=== PATIENT | female | born 2000 | race Caucasian/White ===

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

== ENCOUNTER 2022-01-13 20:02 | Emergency (ER) | payer BC, MEDICAID, SELFPAY ==
[2022-01-13 20:41] VITALS: BP 130/84; PULSE 90; RESP 16; TEMP 36.9; O2SAT 98; BMI 21.0
--- NOTE | 2022-01-13 20:50 | ED_ITS ---
HPI - URI/Sore Throat General: Chief Complaint: Upper Respiratory Infection Stated Complaint: Something Stuck in Throat Time Seen by Provider: 01/13/22 20:47 History of Present Illness: 21-year-old female comes in today with complaints of posterior pharyngeal discomfort with swallowing. Patient reports about 3 days ago she was eating some croutons and since then she has had discomfort in the posterior pharynx. Patient denies any consumption of fish or boned chicken. Patient appears nontoxic. Patient reports ability to swallow food and fluid without difficulty. Associated symptoms: Deny chest pain, fever(s), nausea or vomiting Review of Systems Const: Denies: fever(s) ENMT: Reports: throat pain Card: Denies: chest pain Resp: Denies: dyspnea GI: Denies: nausea or vomiting PFSH ED PFSH: Medical History Asthma does not currently have an inhaler-- usually has more attacks in the summer- is not managed Celiac disease told she had this dx'd by ER at [facility]-- she developed a rash and was seen for that. No biospy or blood test. No pertinent past medical history Neg hx: HTN, DM, thyroid, DVT/PE PCP: None Surgical History No pertinent past surgical history Family History Grandmother Diabetes Maternal Family/Other Breast cancer Maternal Great Grandmother--dx age 56 Denies family history of Colon cancer Ovarian cancer Heart disease Hypercholesteremia Hypertension Uterine cancer Thyroid disease Stroke Female Reproductive History: Date of last menstrual period: 01/02/22 Physical Exam Const: COMMON NORMALS: alert HENMT: COMMON NORMALS: TM's normal bilaterally NOSE: Normal nares present TYMPANIC MEMBRANE: TM's normal bilaterally MOUTH: Normal oral and palatal mucosa present THROAT: posterior oropharynx abnormal cobblestoning and erythema Neck/C-Spine: COMMON NORMALS: full ROM and no meningeal signs Resp: COMMON NORMALS: normal respiratory effort and clear to auscultation bilaterally AUSCULTATION: clear to auscultation bilaterally Cardio: COMMON NORMALS: regular rate and regular rhythm RATE: regular rate RHYTHM: regular rhythm Extremity: COMMON NORMALS: normal to inspection Neuro: SENSORIUM/ORIENTATION: Yes alert MENINGEAL SIGNS: Yes no meningeal signs Skin: COMMON NORMALS: turgor normal GENERAL SKIN EXAM: turgor normal Course Vital Signs: Vital signs: Vital Signs Temperature 98.4 F 01/13/22 20:41 Pulse Rate 90 01/13/22 20:41 Respiratory Rate 16 01/13/22 20:41 Blood Pressure 130/84 01/13/22 20:41 Pulse Oximetry 98 01/13/22 20:41 Oxygen Delivery Me thod 01/13/22 20:41 MDM - URI/Sore Throat Medical Decision Making Patient comes in today for complaints of sore throat and difficulty swallowing. Patient is concerned she may have a foreign body in her throat. On exam patient has cobblestoning and erythema in the posterior pharynx. Respirations are even lungs are clear to auscultation. Abdomen soft nontender. Differential diagnosis includes but not limited to viral pharyngitis, postnasal drip, foreign body. X-ray noted no foreign body. Patient was given 10 mg of dexamethasone for pharyngitis. Encourage fluids rest and follow-up with primary care. Patient reported understanding and agreed to plan. Lab Data Radiology Impressions Soft Tissue Neck X-Ray 01/13/22 20:55 IMPRESSION: No acute findings. Discharge Plan Discharge Patient Disposition: Home Clinical Impression: Pharyngitis Qualifiers: Pharyngitis/tonsillitis etiology: unspecified etiology Qualified Code(s): J02.9 - Acute pharyngitis, unspecified Condition: Stable Prescriptions: No Action albuterol sulfate [ProAir HFA] 90 mcg/actuation HFA aerosol inhaler 2 puff INHALATION Q6H PRN (Reason: shortness of breath or wheezing) Qty: 18 0RF Valium 5 mg Tablet 5 mg PO DAILY PRN (Reason: Anxiety) Discharge Orders: Discharge ED (Routine); Ordered 01/13/22 Ordered By: Ricardo Hatch Referrals: Alysha Jones DO [Primary Care Provider] - Discharge Diet: Usual diet Discharge Activity: Increase activity as tolerated Patient Instructions: Pharyngitis (ED) Activity Restrictions/Additional Instructions: Drink plenty of water. Use throat lozenges to help with discomfort. Follow-up with primary care for further instruction. Return to ER for new concerns. Coding Level of Care Code ED Yeast Culture Developer for Ann Fwd Exam Detailed
--- NOTE | 2022-01-13 20:55 | XRR_ITS ---
PROCEDURE INFORMATION: Exam: XR Soft Tissue Neck Exam date and time: 01/13/2022 8:59 PM Age: 21 years old Clinical indication: Throat pain; Additional info: Foreign body sensation throat TECHNIQUE: Imaging protocol: Radiologic exam of the soft tissues of the neck. COMPARISON: CR XR chest 1V portable [id number] 10/17/2021 1:31 PM FINDINGS: Airway: Normal. No abnormal narrowing. Soft tissues: Normal. Normal epiglottis. No evidence of radiopaque foreign body. Bones/joints: Unremarkable. XR/XR soft tissue neck [id number] IMPRESSION: No acute findings.
[2022-01-13] MEDS: dexamethasone 10 mg/mL INJ IM (21:55)
== END 2022-01-13 22:01 | disposition home or self-care (01) ==
PROVIDERS: Emergency Provider Nurse Practitioner Family; PCP Family Medicine
DX: J02.9 Acute pharyngitis, unspecified (principal)
CPT/HCPCS: 70360; 96372; 99284; J1100

== ENCOUNTER 2022-02-23 10:54 | Outpatient (CLI) | payer BC, MEDICAID, SELFPAY ==
--- NOTE | 2022-02-23 16:00 | USCV_ITS ---
Manisha Ma Age: 21 Gender: F : 2000 Exam Date: 02/23/2022 11:46 Ordering Phys: Myriam Godinez MD ([email or web address]) Technologist: Xiang Day Exam Location: [facility] [place] Indication: abnormal ekg BP: 120 / 72 HR: 99 Rhythm: Sinus Technical Quality: Adequate MEASUREMENTS (Male / Female) Normal Values 2D ECHO LV Diastolic Diameter PLAX 3.2 cm 4.2 - 5.9 / 3.9 - 5.3 cm LV Systolic Diameter PLAX 2.4 cm IVS Diastolic Thickness 0.9 cm 0.6 - 1.0 / 0.6 - 0.9 cm IVS Systolic Thickness 1.2 cm LVPW Diastolic Thickness 0.8 cm 0.6 - 1.0 / 0.6 - 0.9 cm LVPW Systolic Thickness 1.1 cm LVOT Diameter 2.0 cm LV Ejection Fraction 2D Teich 39.5 % LV Ejection Fraction MOD 2C 71.7 % LV Ejection Fraction 2C AL 71.6 % LA Diameter 2.4 cm Aorta at Sinotubular Diameter 1.8 cm M-MODE Aortic Annulus Diameter 2.7 cm LA Ao Ratio MM 1.1 MV E Point Septal Separation 0.7 cm DOPPLER AV Peak Velocity 126.0 cm/s LVOT Peak Velocity 100.0 cm/s AV Area Cont Eq vti 2.3 cm squared AV Area Cont Eq pk 2.5 cm squared MV Area PHT 5.0 cm squared Mitral E to A Ratio 1.0 MV E' Velocity 51.5 cm/s Mitral E to MV E' Ratio 6.7 Mitral E to LV E' Lateral Ratio 6.1 Mitral E to LV E' Septal Ratio 7.4 TR Peak Velocity 144.0 cm/s TR Peak Gradient 8.3 mmHg TV Peak E Velocity 80.0 cm/s Right Atrial Pressure 3.0 mmHg Pulmonary Artery Systolic Pressu 11.3 mmHg RV Acceleration Time 0.2 s FINDINGS Left Ventricle Normal left ventricular size, systolic function and wall thickness, with no regional wall motion abnormalities. Right Ventricle The right ventricle is normal in size and function. Right Atrium The right atrium is normal in size. Left Atrium The left atrium is normal in size. Mitral Valve No gross abnormalities noted Aortic Valve No gross abnormalities noted Tricuspid Valve No gross abnormalities noted Pulmonic Valve No gross abnormalities noted Pericardium Normal pericardium without effusion. Aorta Normal ascending aorta dimension. IVC Normal inferior vena cava. CONCLUSIONS Normal left ventricular size, systolic function and wall thickness, with no regional wall motion abnormalities. Normal cardiac chamber sizes. No significant stenotic or regurgitant valvular lesions No intracardiac shunts by color-flow Doppler examination or by saline contrast injection No intracardiac masses No similar previous studies are available for comparison Dr Myriam Godinez MD FAC (Electronically Signed) Final Date: 23 February 2022 19:13 S
== END 2022-02-23 10:55 | disposition home or self-care (01) ==
PROVIDERS: PCP Family Medicine; Visit Provider Internal Medicine Cardiovascular Disease
DX: R07.9 Chest pain, unspecified (principal); R94.31 Abnormal electrocardiogram [ECG] [EKG]
CPT/HCPCS: 93306

== ENCOUNTER → 2022-04-16 09:27 | Outpatient (BNVA) | payer BC, MEDICAID, SELFPAY | PROVIDERS: PCP Family Medicine; Visit Provider Nurse Practitioner Women's Health | DX: Z34.80 Encounter for supervision of other normal pregnancy, unspecified trimester (principal) | CPT/HCPCS: 81000; 81025 ==

== ENCOUNTER 2022-04-21 14:50 | Emergency (ER) | payer BC, MEDICAID, SELFPAY ==
[2022-04-21 14:55] VITALS: BP 106/62; PULSE 92; RESP 16; TEMP 36.9; O2SAT 99; BMI 21.4
--- NOTE | 2022-04-21 15:06 | US_ITS ---
WS: [id number] EARLY OBSTETRICAL ULTRASOUND (<14 WEEKS). HISTORY: L pelvic pain; r/o ectopic COMPARISON: None available. Single intrauterine gestational sac is identified. Cardiac activity at 112. Neche-rump length measure s 0.6 cm which corresponds to a gestation of 6w3d. Normal-appearing yolk sac and amnion demonstrated. Moderate-sized subchorionic hemorrhage measures 1.9 x 2.0 x 1.2 cm adjacent to the gestational sac a t the fundus. Small amount of free fluid. Both ovaries are identified and unremarkable. Gestational sac size is measuring 7 weeks and 1 day which is slightly greater than the crown-rump deena gt. US/US OB transvaginal [id number] IMPRESSION: 1. Single intrauterine gestation of 6 weeks 3 days with an EDC of 12/12/2022. 2. Moderate-sized subchorionic hemorrhage. 3. No ectopic identified.
--- NOTE | 2022-04-21 15:21 | ED_ITS ---
HPI - Female Genitourinary General: Chief complaint: Vaginal Bleeding Stated complaint: possible ectopic , 7 weeks Time Seen by Provider: 04/21/22 14:54 Source: patient Mode of arrival: ambulatory Limitations: no limitations History of Present Illness: Patient is a 22-year-old female female approximately 7 weeks here for left lower pelvic pain and concern for ectopic . She also has had some spotting over the past 4 to 5 days (only notices when she wipes). [facility]. She reports some mild yellow vaginal discharge but no vaginal odor, new sexual partners, or concern for STDs. MD elicited complaint: pelvic pain Onset (ago): day(s) Location of symptoms: pelvis Severity: moderate Female Urogenital Radiation: Non-Radiating Quality of pain: sharp Consistency: constant Vaginal discharge: none Vaginal bleeding: scant Exacerbating factors: none Relieving factors: none Associated symptoms: Reports no associated symptoms and vaginal discharge; Deny abdominal pain or nausea Treatment prior to arrival: none Sexual activity: Yes Patient : Yes Possible : at home test positive and other (confirmed by [facility]) Date of Last Menstrual Period: 01/02/22 Review of Systems Const: Denies: fever(s), chills, body aches, fatigue or malaise Card: Denies: chest pain Resp: Denies: dyspnea GI: Denies: abdominal pain, nausea, vomiting or diarrhea : Reports: vaginal bleeding, vaginal discharge and pelvic pain; Denies: flank pain, difficulty voiding, dysuria, urinary frequency, urinary urgency, urinary hesitancy, genital lesions, genital pruritis or vaginal odor Musc: Denies: back pain Skin/Breast: Denies: rash Neuro: Denies: dizziness PFSH ED PFSH: Medical History Asthma does not currently have an inhaler-- usually has more attacks in the summer- is not managed Atypical chest pain No pertinent past medical history Neg hx: HTN, DM, thyroid, DVT/PE PCP: Robert--- [facility] Palpitations Surgical History No pertinent past surgical history Family History Grandmother Diabetes Maternal Dementia Family/Other Breast cancer Maternal Great Grandmother--dx age 56 Grandfather CAD (coronary artery disease) Mother Lung disease Liver disease Denies family history of Colon cancer Ovarian cancer Clotting disorder Heart disease Hypercholesteremia Chronic kidney disease (CKD) Suicide Anesthesia complication Bleeding disorder Hypertension Uterine cancer Thyroid disease Stroke Social History Smoking and tobacco status: current every day smoker (VAPE) Female Reproductive History: Date of last menstrual period: 01/02/22 Physical Exam Const: COMMON NORMALS: no acute distress, average body habitus, patient oriented x3, no limitations, healthy appearing, alert and well nourished Resp: COMMON NORMALS: normal respiratory effort and clear to auscultation bilaterally AUSCULTATION: clear to auscultation bilaterally Cardio: COMMON NORMALS: regular rate and regular rhythm RATE: regular rate RHYTHM: regular rhythm GI: COMMON NORMALS: Normal to inspection, nondistended, normoactive bowel sounds present, Soft to palpation, No hepatosplenomegaly present and no masses INSPECTION: Yes normal to inspection AUSCULTATION: Yes normoactive bowel sounds PALPATION: Yes Soft to palpation, Yes Tenderness to palpation present (GI) (mild tenderness to lower abdomen/pelvis; non-surgical), No Guarding due to palpation present (GI), No Rigid due to palpation and Yes No hepatosplenomegaly present : COMMON NORMALS: Yes no CVA tenderness and Yes normal bimanual exam BLADDER/KIDNEY EXAM: Yes no CVA tenderness SPECULUM EXAM - CERVIX: Yes Cervical os closed, No Tissue present in the cervical os, No Cervical bleeding, No mucoid cervix, No Cervical tenderness present and Yes Other cervical findings present (mild amount yellow discharge-probably physiologic) BIMANUAL EXAM - VAGINA & UTERUS: Yes normal bimanual exam, No cervical motion tenderness and No Cervical tenderness present BIMANUAL EXAM - ADNEXA, OTHER: Yes normal adnexae Back/Pelvis: COMMON NORMALS: no CVA tenderness Extremity: COMMON NORMALS: normal to inspection GENERAL: Yes normal exam except as noted Neuro: COMMON NORMALS: patient oriented x3, moves all extremities, no focal motor deficits and no sensory deficits noted SENSORIUM/ORIENTATION: Yes alert Skin: COMMON NORMALS: no rashes or lesions noted GENERAL SKIN EXAM: no rashes or lesions noted Course Vital Signs: Vital signs: Vital Signs Temperature 98.5 F 04/21/22 14:55 Pulse Rate 92 04/21/22 14:55 Respiratory Rate 14 04/21/22 17:06 Blood Pressure 106/62 04/21/22 14:55 Pulse Oximetry 99 04/21/22 14:55 Oxygen Delivery Me thod 04/21/22 14:55 MDM - Female Medical Decision Making Patient appears in no acute distress. Her vital signs are stable. Blood work is unremarkable. hCG roughly 49,000 which is on tract with ultrasound findings. Ultrasound today showed a single live IUP with gestation of 6 weeks and 3 days. She did have a moderate sized subchorionic hemorrhage which is most likely the source of her vaginal bleeding. Recommend pelvic rest until told otherwise by OB. Recommend [facility] to schedule follow up visit. Return to ED precautions given. Will call tomorrow with results of her wet prep, gonorrhea, and chlamydia. Lab Data 04/21/22 15:12 04/21/22 15:12 Radiology Impressions Transvaginal US 04/21/22 15:06 IMPRESSION: 1. Single intrauterine gestation of 6 weeks 3 days with an EDC of 12/12/2022. 2. Moderate-sized subchorionic hemorrhage. 3. No ectopic identified. Laboratory Results WBC 11.8 10^3/uL (4.5-13.0) 04/21/22 15:12 RBC 4.20 10^6/uL (4.1-5.3) 04/21/22 15:12 Hgb 12.2 g/dL (11.5-15.3) 04/21/22 15:12 Hct 37.2 % (37.0-47.0) 04/21/22 15:12 MCV 88.6 fl (81-99) 04/21/22 15:12 MCH 29.0 pg (28.0-34.0) 04/21/22 15:12 MCHC 32.8 g/dL (30.0-36.0) 04/21/22 15:12 RDW 13.8 % (12.1-15.1) 04/21/22 15:12 Plt Count 332 10^3/cmm (130-400) 04/21/22 15:12 MPV 11.1 fL (7.4-10.4) H 04/21/22 15:12 Neut % (Auto) 77.7 % 04/21/22 15:12 Lymph % (Auto) 16.9 % 04/21/22 15:12 [place] % (Auto) 4.3 % 04/21/22 15:12 Eos % (Auto) 0.4 % 04/21/22 15:12 Baso % (Auto) 0.3 % 04/21/22 15:12 Neut # (Auto) 9.14 10^3/uL (1.8-8.0) H 04/21/22 15:12 Lymph # (Auto) 2.0 10^3/uL (1.5-6.5) 04/21/22 15:12 [place] # (Auto) 0.5 10^3/uL (0.2-0.9) 04/21/22 15:12 Eos # (Auto) 0.1 10^3/uL (0.0-0.8) 04/21/22 15:12 Baso # (Auto) 0.0 10^3/uL (0.0-0.1) 04/21/22 15:12 Nucleated RBC % (auto) 0 % 04/21/22 15:12 Nucleated RBCs # 0.0 /100WBC 04/21/22 15:12 Sodium 135 mmol/L (136-145) L 04/21/22 15:12 Potassium 3.6 mmol/L (3.5-5.1) 04/21/22 15:12 Chloride 101 mmol/L (98-107) 04/21/22 15:12 Carbon Dioxide 22 mmol/L (22-29) 04/21/22 15:12 Anion Gap 15.6 (5-19) 04/21/22 15:12 BUN 10 mg/dL (6-20) 04/21/22 15:12 Creatinine 0.6 mg/dL (0.5-0.9) 04/21/22 15:12 GFR Calculation 127.5 mL/min (90-130) 04/21/22 15:12 Glucose 91 mg/dL (65-115) 04/21/22 15:12 Calculated Osmolality 279 mOsm/kg (285-295) L 04/21/22 15:12 Calcium 9.2 mg/dL (8.5-10.5) 04/21/22 15:12 Total Bilirubin 0.3 mg/dL (0.15-1.2) 04/21/22 15:12 AST 11 U/L (0-32) 04/21/22 15:12 ALT 7 U/L (0-33) 04/21/22 15:12 Alkaline Phosphatase 66 U/L (35-105) 04/21/22 15:12 Total Protein 7.1 g/dL (6.6-8.7) 04/21/22 15:12 Albumin 4.5 g/dL (3.5-5.2) 04/21/22 15:12 Globulin 2.6 g/dL (1.3-4.6) 04/21/22 15:12 Ser , Semi-Qnt 33498.00 mIU/mL 04/21/22 15:12 Blood Type O Positive 04/21/22 15:12 Rho(D) Type Positive 04/21/22 15:12 Discharge Plan Discharge Patient Disposition: Home Clinical Impression: Subchorionic hematoma in first trimester Qualifiers: Fetus number: single or unspecified fetus Qualified Code(s): O41.8X10 - Other specified disorders of amniotic fluid and membranes, first trimester, not applicable or unspecified Vaginal discharge during Qualifiers: Trimester: first trimester Qualified Code(s): O26.891 - Other specified related conditions, first trimester Condition: Stable Prescriptions: No Action Gummies 400 mcg-35 mg- 25 mg-5 mg tablet,chewable 1 tab PO DAILY albuterol sulfate [ProAir HFA] 90 mcg/actuation HFA aerosol inhaler 2 puff INHALATION Q6H PRN (Reason: shortness of breath or wheezing) Qty: 18 0RF Valium 5 mg Tablet 5 mg PO DAILY PRN (Reason: Anxiety) Discharge Orders: Discharge ED (Routine); Ordered 04/21/22 Ordered By: Cece Fox Referrals: Sanchez Carroll MD [Primary Care Provider] - Activity Restrictions/Additional Instructions: Please contact your COSMETIC SURGEON tomorrow to schedule follow-up appointment and to see if they would still like a dating ultrasound as ultrasound was completed today. I will contact you tomorrow on the results of your wet prep and any other testing that was performed today if results have returned by then. Coding Level of Care Code ED Housing Development Specialist for Chg Fwd Exam Comprehensive
[2022-04-21 15:28] LABS: Basophils % 0.3 %; Eosinophils # 0.1 10^3/uL (0.0-0.8); Eosinophils % 0.4 %; Hematocrit 37.2 % (37.0-47.0); Hemoglobin 12.2 g/dL (11.5-15.3); Lymphocytes % 16.9 %; Mean Corpuscular HGB Conc 32.8 g/dL (30.0-36.0); Mean Corpuscular Volume 88.6 fl (81-99); Mean Platelet Volume 11.1 fL (7.4-10.4); Monocytes # 0.5 10^3/uL (0.2-0.9); Monocytes % 4.3 %; Neutrophils # 9.14 10^3/uL (1.8-8.0); Neutrophils % 77.7 %; Nucleated Red Blood Cells % 0 %; Platelet Count 332 10^3/cmm (130-400); Red Cell Distribution Width 13.8 % (12.1-15.1); White Blood Count 11.8 10^3/uL (4.5-13.0)
[2022-04-21 16:14] LABS: Alanine Aminotransferase 7 U/L (0-33); Albumin Level 4.5 g/dL (3.5-5.2); Alkaline Phosphatase 66 U/L (35-105); Anion Gap 15.6 (5-19); Aspartate Amino Transferase 11 U/L (0-32); Blood Urea Nitrogen 10 mg/dL (6-20); Calcium 9.2 mg/dL (8.5-10.5); Carbon Dioxide 22 mmol/L (22-29); Chloride 101 mmol/L (98-107); Globulin 2.6 g/dL (1.3-4.6); Glomerular Filtration Rate 127.5 mL/min (90-130); Glucose 91 mg/dL (65-115); Osmolality Calculated 279 mOsm/kg (285-295); Potassium 3.6 mmol/L (3.5-5.1); Sodium 135 mmol/L (136-145); Total Bilirubin 0.3 mg/dL (0.15-1.2); Total Protein 7.1 g/dL (6.6-8.7)
[2022-04-21 17:06] VITALS: RESP 14
== END 2022-04-21 17:13 | disposition home or self-care (01) ==
PROVIDERS: Emergency Provider Physician Assistant; PCP Obstetrics & Gynecology
DX: O41.8X10 Other specified disorders of amniotic fluid and membranes, first trimester, not applicable or unspecified (principal); O26.891 Other specified pregnancy related conditions, first trimester; Z3A.01 Less than 8 weeks gestation of pregnancy; N89.8 Other specified noninflammatory disorders of vagina; F17.290 Nicotine dependence, other tobacco product, uncomplicated
CPT/HCPCS: 76817; 80053; 84702; 85025; 86900; 87210; 87491; 87591; 99284

== ENCOUNTER → 2022-05-06 11:00 | Outpatient (BNVA) | payer BC, MEDICAID, SELFPAY | PROVIDERS: PCP Obstetrics & Gynecology; Visit Provider Obstetrics & Gynecology | DX: Z34.91 Encounter for supervision of normal pregnancy, unspecified, first trimester (principal); Z3A.09 9 weeks gestation of pregnancy | CPT/HCPCS: 76801 ==

== ENCOUNTER → 2022-05-12 09:30 | Outpatient (BNVA) | payer BC, MEDICAID, SELFPAY | PROVIDERS: PCP Obstetrics & Gynecology; Visit Provider Obstetrics & Gynecology | DX: Z34.80 Encounter for supervision of other normal pregnancy, unspecified trimester (principal) | CPT/HCPCS: 80307; 81000; 86592; 86762; 86803; 86850; 87086; 87340; 87806 ==

== ENCOUNTER → 2022-05-21 09:46 | Outpatient (BNVA) | payer BC, MEDICAID, SELFPAY | PROVIDERS: PCP Obstetrics & Gynecology; Visit Provider Obstetrics & Gynecology | DX: Z34.80 Encounter for supervision of other normal pregnancy, unspecified trimester (principal) | CPT/HCPCS: 86850 ==

== ENCOUNTER → 2022-05-26 09:29 | Outpatient (BNVA) | payer BC, MEDICAID, SELFPAY | PROVIDERS: PCP Obstetrics & Gynecology; Visit Provider Obstetrics & Gynecology | DX: Z34.80 Encounter for supervision of other normal pregnancy, unspecified trimester (principal) | CPT/HCPCS: 81000 ==

== ENCOUNTER → 2022-06-23 14:36 | Outpatient (BNVA) | payer BC, MEDICAID, SELFPAY | PROVIDERS: PCP Obstetrics & Gynecology; Visit Provider Nurse Practitioner Women's Health | DX: Z34.80 Encounter for supervision of other normal pregnancy, unspecified trimester (principal); J45.909 Unspecified asthma, uncomplicated; I49.3 Ventricular premature depolarization; R00.0 Tachycardia, unspecified | CPT/HCPCS: 81000 ==

== ENCOUNTER → 2022-07-28 09:28 | Outpatient (BNVA) | payer BC, MEDICAID, SELFPAY | PROVIDERS: PCP Obstetrics & Gynecology; Visit Provider Obstetrics & Gynecology | DX: Z36.3 Encounter for antenatal screening for malformations (principal) | CPT/HCPCS: 76805 ==

== ENCOUNTER → 2022-07-31 10:37 | Outpatient (BNVA) | payer BC, MEDICAID, SELFPAY | PROVIDERS: PCP Obstetrics & Gynecology; Visit Provider Obstetrics & Gynecology | DX: Z34.80 Encounter for supervision of other normal pregnancy, unspecified trimester (principal); J45.909 Unspecified asthma, uncomplicated; R00.0 Tachycardia, unspecified | CPT/HCPCS: 81000 ==

== ENCOUNTER 2022-08-08 07:35 | Outpatient (CLI) | payer BC, MEDICAID, SELFPAY ==
--- NOTE | 2022-08-08 07:30 | USCV_ITS ---
Manisha Sheriff Age: 22 Gender: F : 2000 Exam Date: 08/08/2022 07:49 Ordering Phys: Sanchez Carroll MD Technologist: AYDEE Exam Location: [facility] [place] Indication: rt leg pain and swelling HISTORY: Lower extremity pain. PROCEDURES: Venous duplex imaging was performed in only the right lower extremity. The following venous structures were evaluated: common femoral vein, profunda vein, proximal portion of the greater saphenous vein, superficial femoral vein, and the popliteal vein. In addition, the posterior tibial and peroneal trunk were evaluated. Serial compression, augmentation maneuvers, and spectral Doppler flow evaluation were performed. FINDINGS: No evidence of DVT seen in any vessel visualized at this time. CONCLUSIONS No evidence of right lower extremity DVT. Koko Garcia MD (Electronically Signed) Final Date: 09 Aug 2022 10:41 S
== END 2022-08-08 07:36 | disposition home or self-care (01) ==
LOC: RAD 07:39
PROVIDERS: PCP Obstetrics & Gynecology; Visit Provider Obstetrics & Gynecology
DX: M79.604 Pain in right leg (principal)
CPT/HCPCS: 93971

== ENCOUNTER 2022-08-28 17:01 | Outpatient (CLI) | payer BC, MEDICAID, SELFPAY ==
--- NOTE | 2022-08-28 17:00 | USR_ITS ---
PROCEDURE INFORMATION: Exam: US ; Follow up Exam date and time: 08/28/2022 5:11 PM Age: 22 years old Clinical indication: Lmp or gestational age (in weeks): 25; Other: F/u ob spine; ; Additional info: Z34.80 - encounter for supervision of other normal pregna. . . , Spine is not visualized due to positioning. LABS AND CLINICAL REPORTS: Last menstrual period start date: 02/28/2022 Gestational age (Established): 25 w 6 d Estimated due date (Established): 12/05/2022 TECHNIQUE: Imaging protocol: Transabdominal ultrasound of the uterus, real time with image documentation. Follow-up (eg, re-evaluation of size by measuring standard growth parameters and amniotic fluid volume, re-evaluation of organ system(s) suspected or confirmed to be abnormal on a previous scan). COMPARISON: US OB >= 14 weeks fetus [id number] 07/28/2022 9:41 AM FINDINGS: Gestation: Intrauterine gestation. heart rate: 157 bpm. heart beat 157 bpm. presentation: Vertex presentation with posterior spine. Placenta: Anterior placenta. Amniotic fluid: Subjectively normal amniotic fluid. spine: Spine not adequately visualized due to baby facing anteriorly. MATERNAL: Cervix: Cervical length measures 3.4 cm. 3.4 cm closed cervix. US/[place] [id number] IMPRESSION: 1. heart beat 157 bpm. 2. 3.4 cm closed cervix. 3. Subjectively normal amniotic fluid. 4. Vertex presentation with posterior spine. 5. Anterior placenta. 6. Spine not adequately visualized due to baby facing anteriorly.
== END 2022-08-28 17:02 | disposition home or self-care (01) ==
PROVIDERS: PCP Obstetrics & Gynecology; Visit Provider Obstetrics & Gynecology
DX: Z34.80 Encounter for supervision of other normal pregnancy, unspecified trimester (principal)
CPT/HCPCS: 76816

== ENCOUNTER → 2022-09-02 14:08 | Outpatient (BNVA) | payer BC, MEDICAID, SELFPAY | PROVIDERS: PCP Obstetrics & Gynecology; Visit Provider Nurse Practitioner Women's Health | DX: Z34.80 Encounter for supervision of other normal pregnancy, unspecified trimester (principal); L29.9 Pruritus, unspecified | CPT/HCPCS: 81000; 82542; 82950 ==

== ENCOUNTER 2022-09-22 12:15 | Outpatient (CLI) | payer BC, MEDICAID, SELFPAY ==
--- NOTE | 2022-09-22 12:45 | US_ITS ---
WS: [id number] ULTRASOUND OB FOCUSED HISTORY: Follow-up spine. COMPARISON: 08/28/2022 Single intrauterine gestation in cephalic presentation. Between the head and the cervix are loo ps of umbilical cord. The head is not at the cervix. This is a new finding since the prior stud y. The cervix is closed at 3.2 cm. heart rate at 150 BPM. Additional imaging the spine demonstrates normal structures. Placenta is anterior grade 1. Norm al fluid. US/US OB limited [id number] IMPRESSION: 1. Normal follow-up imaging of the spine. 2. Vasa previa. Loops of umbilical cord covered the internal cervical os. New finding since the prior study. Recommend close follow-up imaging prior to germania so.
== END 2022-09-22 12:16 | disposition home or self-care (01) ==
LOC: RAD 12:15
PROVIDERS: PCP Obstetrics & Gynecology; Visit Provider Obstetrics & Gynecology
DX: Z34.80 Encounter for supervision of other normal pregnancy, unspecified trimester (principal)
CPT/HCPCS: 76815

== ENCOUNTER → 2022-09-28 11:31 | Outpatient (BNVA) | payer BC, MEDICAID, SELFPAY | PROVIDERS: PCP Obstetrics & Gynecology; Visit Provider Obstetrics & Gynecology | DX: Z34.80 Encounter for supervision of other normal pregnancy, unspecified trimester (principal); Z3A.00 Weeks of gestation of pregnancy not specified | CPT/HCPCS: 84315; 85025 ==

== ENCOUNTER → 2022-10-05 11:34 | Outpatient (BNVA) | payer BC, MEDICAID, SELFPAY | PROVIDERS: PCP Obstetrics & Gynecology; Visit Provider Obstetrics & Gynecology | DX: Z34.80 Encounter for supervision of other normal pregnancy, unspecified trimester (principal); Z3A.00 Weeks of gestation of pregnancy not specified | CPT/HCPCS: 81000 ==

== ENCOUNTER → 2022-10-12 15:22 | Outpatient (BNVA) | payer BC, MEDICAID, SELFPAY | PROVIDERS: PCP Obstetrics & Gynecology; Visit Provider Obstetrics & Gynecology | DX: Z34.93 Encounter for supervision of normal pregnancy, unspecified, third trimester (principal); Z3A.32 32 weeks gestation of pregnancy | CPT/HCPCS: 76815; 76817 ==

== ENCOUNTER → 2022-10-19 10:09 | Outpatient (BNVA) | payer BC, MEDICAID, SELFPAY | PROVIDERS: PCP Obstetrics & Gynecology; Visit Provider Obstetrics & Gynecology | DX: Z34.80 Encounter for supervision of other normal pregnancy, unspecified trimester (principal); Z3A.00 Weeks of gestation of pregnancy not specified | CPT/HCPCS: 81000 ==

== ENCOUNTER → 2022-11-06 15:21 | Outpatient (BNVA) | payer BC, MEDICAID, SELFPAY | PROVIDERS: PCP Obstetrics & Gynecology; Visit Provider Obstetrics & Gynecology | DX: Z34.80 Encounter for supervision of other normal pregnancy, unspecified trimester (principal); Z3A.00 Weeks of gestation of pregnancy not specified | CPT/HCPCS: 81000 ==

== ENCOUNTER 2022-11-10 11:04 | Outpatient (CLI) | payer BC, MEDICAID, SELFPAY ==
[2022-11-10 11:48] LABS: Basophils % 0.3 %; Eosinophils % 0.3 %; Hematocrit 32.1 % (37.0-47.0); Hemoglobin 9.6 g/dL (11.5-15.3); Lymphocytes # 1.3 10^3/uL (1.5-6.5); Lymphocytes % 10.7 %; Mean Corpuscular HGB Conc 29.9 g/dL (30.0-36.0); Mean Corpuscular Hemoglobin 27.1 pg (28.0-34.0); Mean Corpuscular Volume 90.7 fl (81-99); Monocytes # 0.5 10^3/uL (0.2-0.9); Monocytes % 4.5 %; Neutrophils # 9.57 10^3/uL (1.8-8.0); Neutrophils % 79.6 %; Nucleated Red Blood Cells % 0 %; Platelet Count 232 10^3/cmm (130-400); Red Blood Count 3.54 10^6/uL (4.1-5.3)
== END 2022-11-10 11:05 | disposition home or self-care (01) ==
LOC: LAB 11:07
PROVIDERS: PCP Obstetrics & Gynecology; Visit Provider Obstetrics & Gynecology
DX: Z34.80 Encounter for supervision of other normal pregnancy, unspecified trimester (principal)
CPT/HCPCS: 36415; 85025

== ENCOUNTER → 2022-11-16 09:43 | Outpatient (BNVA) | payer BC, MEDICAID, SELFPAY | PROVIDERS: PCP Obstetrics & Gynecology; Visit Provider Obstetrics & Gynecology | DX: Z34.80 Encounter for supervision of other normal pregnancy, unspecified trimester (principal); Z3A.00 Weeks of gestation of pregnancy not specified | CPT/HCPCS: 81000; 87081 ==

== ENCOUNTER 2022-11-18 20:50 | Outpatient (CLI) | payer BC, MEDICAID, SELFPAY ==
[2022-11-18] VITALS (7 sets, daily range): BP systolic 98–114; BP diastolic 55–62; PULSE 88–100; RESP 15; BMI 27.2
== END 2022-11-18 23:32 | disposition home or self-care (01) ==
LOC: OPOB 20:52 → OBGYN 20:54
PROVIDERS: PCP Obstetrics & Gynecology; Visit Provider Obstetrics & Gynecology
DX: O26.899 Other specified pregnancy related conditions, unspecified trimester (principal); Z3A.00 Weeks of gestation of pregnancy not specified; R10.9 Unspecified abdominal pain
CPT/HCPCS: 59025; 99211

== ENCOUNTER → 2022-11-23 09:50 | Outpatient (BNVA) | payer BC, MEDICAID, SELFPAY | PROVIDERS: PCP Obstetrics & Gynecology; Visit Provider Obstetrics & Gynecology | DX: Z34.80 Encounter for supervision of other normal pregnancy, unspecified trimester (principal); Z3A.00 Weeks of gestation of pregnancy not specified | CPT/HCPCS: 81000 ==

== ENCOUNTER → 2022-11-30 09:38 | Outpatient (BNVA) | payer BC, MEDICAID, SELFPAY | PROVIDERS: PCP Obstetrics & Gynecology; Visit Provider Obstetrics & Gynecology | DX: Z34.80 Encounter for supervision of other normal pregnancy, unspecified trimester (principal); I49.3 Ventricular premature depolarization; R00.0 Tachycardia, unspecified; Z36.2 Encounter for other antenatal screening follow-up | CPT/HCPCS: 81000 ==

== ENCOUNTER 2022-12-08 09:15 | Inpatient (IN) | payer BC, MEDICAID, SELFPAY ==
[2022-12-08] VITALS (84 sets, daily range): BP systolic 85–145; BP diastolic 51–80; PULSE 78–129; RESP 16–18; TEMP 35.9–36.8; O2SAT 96–100; BMI 28.0
[2022-12-08 10:16] LABS: Basophils % 0.3 %; Eosinophils % 0.2 %; Hematocrit 31.4 % (36-47); Lymphocytes # 1.4 10^3/uL (1.5-6.5); Lymphocytes % 11.9 %; Mean Corpuscular HGB Conc 30.3 g/dL (30-55); Mean Corpuscular Hemoglobin 26.5 pg (27-33); Mean Corpuscular Volume 87.5 fl (85-98); Mean Platelet Volume 9.7 fL (7.4-10.4); Monocytes # 0.7 10^3/uL (0.2-0.9); Monocytes % 5.6 %; Neutrophils # 9.12 10^3/uL (1.8-8.0); Neutrophils % 78.2 %; Nucleated Red Blood Cells % 0 %; Platelet Count 241 10^3/cmm (157-399); Red Blood Count 3.59 10^6/uL (3.85-5.65); Red Cell Distribution Width 17.3 % (12.1-15.1); White Blood Count 11.64 10^3/uL (4.5-13.0)
[2022-12-08] MEDS: lactated ringers 1,000 ML 999 ML IV (11:07)
[2022-12-08] MEDS: ROPivacaine syringe 100 MG/50 ML SYRINGE 10 MG EPIDURAL ×3 (12:08→19:10)
[2022-12-08] MEDS: dextrose 5%-lactated ringers 1,000 ML 125 ML IV (12:21)
--- NOTE | 2022-12-08 13:45 | PM.OPHPUD ---
Labor & Delivery H&P Update Date of Procedure: December 08, 2022 Date H&P Performed: 11/30/22 H&P update information: I have reviewed H&P completed within last 30 days, I have examined patient prior to procedure and No changes to prior documentation Admission Diagnosis:
[2022-12-08] MEDS: calcium carbonate 500 mg Chew Tablet 1000 MG PO (13:53)
[2022-12-08] MEDS: oxytocin 30 UNIT/500 ML BAG 600 UNIT IV (19:54)
--- NOTE | 2022-12-08 20:20 | P.PCNOB_ITS ---
Delivery Note: Date of delivery: December 08, 2022 Pre-delivery diagnoses: Term Post-delivery diagnoses: Term delivered Procedure: Spontaneous vaginal delivery Delivering Physician: Sanchez Carroll MD Pre-Delivery Course: Ms. Sheriff is a 22 year old established patient with LMP of 02/28/2022 and NATALIA is 12/12/2022 based on 6 week sonogram, placing her at 39 weeks EGA who has been receiving care from [facility]. She has been experiencing painful uterine contractions for the past 4 hours. The contractions are occurring at 4 minute intervals with approximately 30 second duration. She continues to feel movement between the contractions. She denies vaginal bleeding or rupture of membranes. CC: Onset of labor at term. HPI: Received appropriate care. Daily vitamins since start of care. labs have all been normal, including negative for HIV. She was found to negative for Group B Strep from screening at 36 weeks. She has gained approximately 30 lbs throughout the . She denies a history of HTN during . Glucose tolerance screening for gestational diabetes was negative. Delivery: The patient was noted to be complete and pushing, so was placed in the dorsal lithotomy position, prepped and draped in the usual sterile fashion for a vaginal delivery. Pt. Noted to have epidural anesthesia. The patient delivered a viable term female infant weighing 3265 g with scores of 7 and 9 at one and five minutes, respectively. The vertex was delivered spontaneously over intact perineum/midline episiotomy/mediolateral episiotomy. The patient was asked to push and the head delivered spontaneously in the JOSEPH position, over an intact perineum. A nuchal cord was checked and none noted. The anterior shoulder delivered easily and the posterior shoulder followed. The remainder of the infant was easily delivered and the oropharynx and nasopharynx was bulb suctioned. The was noted to have spontaneous cry and spontaneous movement of all four extremities. The cord was clamped x 2 and cut and noted to have 2 arteries and one vein. The infant was passed to the mother's abdomen where nursing personnel were in attendance. Cord blood sample was then obtained. The placenta delivered intact spontaneously and the uterus was explored. 20 units of Pitocin was placed in the IV bag to firm the uterus. Examination of the cervix and vaginal vault did not reveal any lacerations. A vaginal pack was then placed. Examination of the perineum showed a second-degree laceration. The laceration was repaired with 3-0 Vicryl in the normal fashion in a running non locking fashion to reapproximate the laceration in layers. The vaginal pack was then removed. The patient tolerated this procedure well, and recovered in L&D with her infant in their LDR room. All sponge and needle counts were correct. History History History 3 Term 1 0 Miscarriages/Ectopic 1 Living Children 1 Coding Level of Care Code Acute Code for Chg Fwd Diagnoses
[2022-12-08] MEDS: lanolin oint 7 gm 1 APPLIC TOPICAL (23:01)
[2022-12-08] MEDS: ibuprofen 800 mg tablet PO (23:01)
[2022-12-08] MEDS: benzocaine-menthol 78 gm Canister 1 SPRAY TOPICAL (23:02)
[2022-12-09 00:50] VITALS: BP 113/70; PULSE 109; RESP 14; TEMP 36.2; O2SAT 96
[2022-12-09 01:50] VITALS: BP 110/75; PULSE 89; RESP 14; TEMP 36.8; O2SAT 97
[2022-12-09 03:50] VITALS: BP 102/65; PULSE 86; RESP 14; TEMP 36.5; O2SAT 98
[2022-12-09 05:50] VITALS: BP 112/70; PULSE 74; RESP 16; TEMP 36.5; O2SAT 98
[2022-12-09] MEDS: HYDROcodone-acetaminophen 5-325 mg Tablet PO ×3 (06:29→22:53)
[2022-12-09 07:58] LABS: Hematocrit 31.4 % (36-47); Mean Corpuscular HGB Conc 30.6 g/dL (30-55); Mean Corpuscular Hemoglobin 26.7 pg (27-33); Mean Corpuscular Volume 87.5 fl (85-98); Mean Platelet Volume 9.8 fL (7.4-10.4); Platelet Count 216 10^3/cmm (157-399); Red Blood Count 3.59 10^6/uL (3.85-5.65); Red Cell Distribution Width 17.2 % (12.1-15.1); White Blood Count 13.63 10^3/uL (4.5-13.0)
--- NOTE | 2022-12-09 08:02 | ANE.PACU2 ---
Inpatient post-anesthesia follow up: Airway intact: Yes Vital signs: Temperature 98.0 F Pulse Rate 83 Respiratory Rate 17 Blood Pressure 101/63 Pulse Oximetry 98 Oxygen Delivery Me thod Room Air Oxygen Flow Rate Fraction of Inspir ed Oxygen Hydration adequate: Yes Nausea and vomiting: No Pain level: 1 Mental status: Baseline
[2022-12-09] MEDS: ibuprofen 800 mg tablet PO ×3 (08:20→22:46)
[2022-12-09] MEDS: prenatal vitamin Capsule 1 CAP PO (08:20)
[2022-12-09] MEDS: docusate sodium 100 mg Capsule PO ×2 (08:20→18:41)
[2022-12-09 16:00] VITALS: BP 98/62; PULSE 89; RESP 16; TEMP 36.6; O2SAT 98
[2022-12-09 22:00] VITALS: BP 111/59; PULSE 78; RESP 16; TEMP 36.3; O2SAT 96
[2022-12-10 06:15] VITALS: BP 108/74; PULSE 78; TEMP 36.4; O2SAT 98
[2022-12-10] MEDS: HYDROcodone-acetaminophen 5-325 mg Tablet PO (07:05)
[2022-12-10] MEDS: prenatal vitamin Capsule 1 CAP PO (08:45)
[2022-12-10] MEDS: ibuprofen 800 mg tablet PO (08:45)
[2022-12-10] MEDS: docusate sodium 100 mg Capsule PO (08:45)
[2022-12-10 11:57] VITALS: BP 101/63; PULSE 83; RESP 17; TEMP 36.7
--- NOTE | 2022-12-10 12:07 | P.DS_ITS ---
Discharge Providers CREDIT OR LOANS OFFICER Date of Admission: 12/08/22 09:15 Date of Discharge: 12/10/22 Attending Provider at Admission: Sanchez Carroll MD Attending Provider at Discharge: Sanchez Carroll MD Primary CREDIT OR LOANS OFFICER: Sanchez Carroll MD Primary Care Provider: Sanchez Carroll MD Reason for Visit Reason for Visit: contractions Hospital Course Hospital Course Mrs. Sheriff 22-year-old female came to labor and delivery with term in active labor. She progressed to have a spontaneous vaginal delivery without complications. and observation was uneventful. She is afebrile hemodynamically stable day 2 Information Peripartum Data: Infant Delivery Method: Vaginal Physical Exam Narrative: GA; alert and oriented x 3 HEENT: normal Breasts: engorged Nipples - skin intact Lungs; clear to auscultation Heart: regular rhythm, no murmurs. Abd: Appropriately tender. BS+. Uterine fundus below umbilicus. No Fundal Tenderness. Perineum: normal lochia. Extremities: no edema, no cyanosis, no tenderness. Urinary Catheter Management: Rosales: Cath Placed During This Visit: yes, but has since been removed by the nurse Reason for Continuing Indwelling Catheter: Decision to DC Catheter Urinary Catheter Date of Insertion: 12/08/22 Urinary Catheter Time of Insertion: 12:42 Date Urinary Catheter Removed: 12/08/22 Time Urinary Catheter Discontinued: 19:40 History History History 3 Term 1 0 Miscarriages/Ectopic 1 Living Children 1 Discharge Data Studies Completed and Pending Laboratory Results WBC 13.63 10^3/uL (4.5-13.0) H 12/09/22 07:42 RBC 3.59 10^6/uL (3.85-5.65) L 12/09/22 07:42 Hgb 9.60 g/dL (12.4-14.8) L 12/09/22 07:42 Hct 31.4 % (36-47) L 12/09/22 07:42 MCV 87.5 fl (85-98) 12/09/22 07:42 MCH 26.7 pg (27-33) L 12/09/22 07:42 MCHC 30.6 g/dL (30-55) 12/09/22 07:42 RDW 17.2 % (12.1-15.1) H 12/09/22 07:42 Plt Count 216 10^3/cmm (157-399) 12/09/22 07:42 MPV 9.8 fL (7.4-10.4) 12/09/22 07:42 Neut % (Auto) 78.2 % 12/08/22 09:25 Lymph % (Auto) 11.9 % 12/08/22 09:25 [place] % (Auto) 5.6 % 12/08/22 09:25 Eos % (Auto) 0.2 % 12/08/22 09:25 Baso % (Auto) 0.3 % 12/08/22 09:25 Neut # (Auto) 9.12 10^3/uL (1.8-8.0) H 12/08/22 09:25 Lymph # (Auto) 1.4 10^3/uL (1.5-6.5) L 12/08/22 09:25 [place] # (Auto) 0.7 10^3/uL (0.2-0.9) 12/08/22 09:25 Eos # (Auto) 0.0 10^3/uL (0.0-0.8) 12/08/22 09:25 Baso # (Auto) 0.0 10^3/uL (0.0-0.1) 12/08/22 09:25 Nucleated RBC % (auto) 0 % 12/08/22 09:25 Nucleated RBCs # 0.0 /100WBC 12/08/22 09:25 Blood Type O Positive 12/08/22 09:25 Rho(D) Type Positive 12/08/22 09:25 Antibody Screen Negative 12/08/22 09:25 Vitals Last Vital Signs Temp 97.6 F 12/10/22 06:15 Pulse 78 12/10/22 06:15 Resp 16 12/09/22 22:00 BP 108/74 12/10/22 06:15 Pulse Ox 98 12/10/22 06:15 O2 Del Method Room Air 12/10/22 06:15 Discharge Plan Discharge Patient Disposition: Home Condition: Stable Prescriptions: New acetaminophen 325 mg capsule 325 mg PO Q4H PRN (Reason: fever or pain) Qty: 60 0RF docusate sodium [Colace] 100 mg capsule 100 mg PO BID Qty: 60 0RF ferrous sulfate [Iron (ferrous sulfate)] 325 mg (65 mg iron) tablet 325 mg PO BID Qty: 60 0RF ibuprofen 800 mg tablet 800 mg PO TID PRN (Reason: pain) Qty: 60 0RF Continued Gummies 400 mcg-35 mg- 25 mg-5 mg tablet,chewable 1 tab PO DAILY Discharge Orders: Discharge Order (Routine); Ordered 12/10/22 Ordered By: Sanchez Carroll Referrals: Sanchez Carroll MD [Primary Care Provider] - 01/21/23 2:15 pm (Your appointment with Dr. Carroll is scheduled for @2:15pm) Discharge Diet: Usual diet Discharge Activity: Limit activity as instructed Patient Instructions: Depression (DC), Bleeding (DC), Preeclampsia and Eclampsia After Delivery (GEN), Hemorrhage (DC), OB Discharge Report, OB Food/Drug Interaction Guide, Opioid Safety, OB Home Care, OB Vaginal Deliveries - [facility] Activity Restrictions/Additional Instructions: 1. Please call [facility] on next working day to make your appointment in 6 weeks. 2. Please stay home until you come back to the clinic on first post- hospatilization check up. 3. Please follow instructions on your medications CAREFULLY. 4. If you have abdominal incision, do not cover it unless dressing is necessary because of drainage. OK to shower, but avoid bath. Leave steri-strips until they fall off. If they are still on one week after surgery, you may remove them. 5. If you had vaginal surgery or vaginal repair, Dr. Carroll may instruct you to take SITZ bath. 6. Yellow, blood tinged odorous vaginal discharge is usually normal after hysterectomy or vaginal surgeries. 7. No SEXUAL INTERCOURSE, tampons, or douches until you are completely released from the post-operative care. 8. Avoid constipation by eating right and maybe using some Metamucil or Milk of Magnesia. 9. All prescription refills are given during the working hours. Please do no wait till it runs out. Call the clinic at [phone] before your medication runs out. The clinic will get in touch with your doctor to prescribe medications if necessary. 10. Please remain within 40 mile radius from our hospital because emergencies do happen now and then during the post-operative period. 11. If you have stairs at home, take one step at a time slowly and minimize the number of trips. It helps to stay in one floor for the next few days. No lifting except what you can lift by one hand until you are released from the post-operative care. 12. Driving is discouraged until you are well healed. It may be 3-4 weeks before you feel strong enough to drive. You should be able to turn and look through the rear window without pain and you should be able to push the brake pedal very hard without pain before you drive. No fast rules, but SAFETY should be your primary concern. DO NOT drive if you are on sedating medications such as narcotics. 13. Call the clinic (during working hours) to make urgent appointment or go to the Emergency room, if any of the following occurs: i. Vaginal bleeding becomes heavy, more than a period. ii. Incision becomes red and sore, or drains pus. iii. Your TEMPERATURE is over 100.4F or you have chill. iv. IV site becomes red and swollen (a little ``knot?? is usually OK) v. Persistent nausea and vomiting vi. Persistent constipation or diarrhea vii. Rash or allergic reaction to medications. Discharge Attestations CREDIT OR LOANS OFFICER Time Spent in Discharge Care*: greater than 30 min Coding Level of Care Code Acute Code for Chg Fwd Diagnoses
[2022-12-10 13:02] VITALS: BP 101/63; PULSE 83; RESP 17; TEMP 36.7
== END 2022-12-10 13:02 | disposition home or self-care (01) | DRG 807 ==
LOC: OPOB 09:19 → OBGYN 09:19
PROVIDERS: Admitting Provider Obstetrics & Gynecology; PCP Obstetrics & Gynecology; Visit Provider Obstetrics & Gynecology
DX: O70.1 Second degree perineal laceration during delivery (principal); Z37.0 Single live birth; Z3A.39 39 weeks gestation of pregnancy
CPT/HCPCS: 36415; 51702; 59025; 59409; 85025; 85027; 86850; 86900; 98960; 99211; J2590; J2795; J7120; J7121

== ENCOUNTER → 2023-02-01 13:38 | Outpatient (BNVA) | payer BC, MEDICAID, SELFPAY | PROVIDERS: PCP Obstetrics & Gynecology; Visit Provider Obstetrics & Gynecology | DX: Z30.431 Encounter for routine checking of intrauterine contraceptive device (principal); Z3A.00 Weeks of gestation of pregnancy not specified | CPT/HCPCS: 81025 ==

== ENCOUNTER 2023-08-07 14:10 | Emergency (ER) | payer SELFPAY ==
[2023-08-07 14:14] VITALS: BP 99/61; PULSE 74; RESP 17; TEMP 36.8; O2SAT 99; BMI 20.6
--- NOTE | 2023-08-07 15:14 | ED_ITS ---
HPI - Headache General: Chief Complaint: Headache Stated Complaint: lump behind left ear Time Seen by Provider: 08/07/23 15:03 History of Present Illness: 23-year-old female comes in today for co mplaints of a knot behind her left ear. Patient also reports some nausea and dizziness but other than that she feels well. Patient does have a history of recurrent headaches and is awaiting follow-up for a MRI. Patient states that most of her headaches are left-sided. Patient reports no prior nasal drainage or illness. Patient appears nontoxic. Skin is warm and dry. Patient takes no routine medications. Patient does have an allergy to penicillin reported. Patient denies . Review of Systems General: Reports: 10 or more systems reviewed and unremarkable except in HPI and below PFS ED PFSH: Medical History (Updated 08/07/23 @ 15:15 by SHELLEY Winkler) Palpitations Atypical chest pain No pertinent past medical history Neg hx: HTN, DM, thyroid, DVT/PE PCP: Robert--- [facility] Asthma does not currently have an inhaler-- usually has more attacks in the summer- is not managed Surgical History No pertinent past surgical history Family History Grandmother Diabetes Maternal Dementia Family/Other Breast cancer Maternal Great Grandmother--dx age 56 Grandfather CAD (coronary artery disease) Mother Lung disease Liver disease Denies family history of Colon cancer Ovarian cancer Clotting disorder Heart disease Hypercholesteremia Chronic kidney disease (CKD) Suicide Anesthesia complication Bleeding disorder Hypertension Uterine cancer Thyroid disease Stroke Social History Smoking and tobacco/nicotine status: current every day tobacco/nicotine user (VAPE) Physical Exam Const: COMMON NORMALS: alert HENMT: EXTERNAL EAR: Yes other (Posterior auricular lymph node left side) TYMPANIC MEMBRANE: TM abnormal TM laterality: right Details: bulging, effusion and erythematous and left Details: bulging and effusion Neck/C-Spine: COMMON NORMALS: full ROM Resp: COMMON NORMALS: normal respiratory effort Cardio: COMMON NORMALS: regular rate RATE: regular rate GI: COMMON NORMALS: non-tender Back/Pelvis: COMMON NORMALS: thoracic and lumbar spine normal to inspection Extremity: COMMON NORMALS: full ROM Neuro: SENSORIUM/ORIENTATION: Yes alert Skin: COMMON NORMALS: turgor normal GENERAL SKIN EXAM: turgor normal Course Vital Signs: Vital signs: Vital Signs Temperature 98.2 F 08/07/23 14:14 Pulse Rate 74 08/07/23 14:14 Respiratory Rate 17 08/07/23 14:14 Blood Pressure 99/61 08/07/23 14:14 Pulse Oximetry 99 08/07/23 14:14 Oxygen Delivery Me thod Room Air 08/07/23 14:14 MDM - Headache Medical Decision Making 23-year-old female comes in today with concerns of a knot behind her left ear. On exam patient has fluid behind both tympanic membranes with some erythema of the right 1. Patient does have a long small 5 mm palpable nodule behind the left ear. Differential diagnosis includes lymphadenopathy, acute otitis media, otitis media with effusion. Believe patient probably has a otitis media with effusion most likely from a viral infection. Due to the presence of the lymph node will go ahead and cover with some doxycycline 100 mg twice a day for the next 10 days. Reassured patient that this is normal after a usual infection and should clear up on its own. Recommend recheck in 4 to 6-week with primary care for reevaluation of the effusion and the lymph node. Patient reported understanding and agreed to plan. No radiology studies performed this visit Discharge Plan Discharge Patient Disposition: Home Clinical Impression: Acute otitis media with effusion of both ears, Lymphadenopathy Condition: Stable Prescriptions: New doxycycline hyclate 100 mg capsule 100 mg PO BID 10 Days Qty: 20 0RF No Action magnesium L-lactate [Magtab] 84 mg tablet extended release 84 mg PO BID 30 Days Qty: 60 5RF Mirena 21 mcg/24 hours (8 yrs) 52 mg intrauterine device 1 device intrauterine ONCE Qty: 1 0RF Cetacaine 2 %-2 %-14 % (200 mg/sec) aerosol,spray 200 mg mucous membrane ONCE Qty: 1 0RF diazepam [Valium] 2 mg tablet 2 mg PO QID PRN norgestimate-ethinyl estradiol [Sprintec (28)] 0.25-35 mg-mcg tablet 1 tab PO DAILY Qty: 84 0RF acetaminophen 325 mg capsule 325 mg PO Q4H PRN (Reason: fever or pain) Qty: 60 0RF Discharge Orders: Discharge ED (Routine); Ordered 08/07/23 Ordered By: Ricardo Hatch Referrals: Alysha Jones DO [Primary Care Provider] - Discharge Diet: Usual diet Discharge Activity: Increase activity as tolerated Patient Instructions: Ear Infection (ED) Activity Restrictions/Additional Instructions: Take antibiotic as directed. Drink plenty of water and fluids. Follow-up with primary care in 4 to 6 weeks for recheck. Return to ER for new concerns or worsening symptoms. 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
[2023-08-07 15:41] VITALS: BP 99/61; PULSE 74; RESP 17; TEMP 36.8; O2SAT 99
== END 2023-08-07 15:47 | disposition home or self-care (01) ==
PROVIDERS: Emergency Provider Nurse Practitioner Family; PCP Family Medicine
DX: H65.193 Other acute nonsuppurative otitis media, bilateral (principal); R59.1 Generalized enlarged lymph nodes; F17.290 Nicotine dependence, other tobacco product, uncomplicated
CPT/HCPCS: 99283